=== PATIENT | male | born 1945 | race Caucasian/White ===

== ENCOUNTER → 2018-08-08 | Outpatient (CLI) | payer OTHER, MEDICARE | END | disposition home or self-care (01) | LOC: LAB SHORT 12:43 → LAB EV 12:43 | DX: L72.3 Sebaceous cyst (principal) | CPT/HCPCS: 87070; 87205 ==

== ENCOUNTER 2019-03-09 18:23 | Observation (INO) | payer OTHER, MEDICARE ==
[~2019-03-09] VITALS: Ht 170.2 cm; Wt 79.4 kg
[2019-03-09 18:55] LABS: BASOPHILS ABSOLUTE AUTO 0.04 K/mm3 (0.00-0.23); BASOPHILS PERCENT AUTO 0 % (0-2); EOSINOPHILS ABSOLUTE AUTO 0.15 K/mm3 (0.00-0.68); EOSINOPHILS PERCENT AUTO 2 % (0-6); Hemoglobin 14.1 g/dL (13.5-17.5); IMMATURE GRAN ABSOLUTE AUTO 0.07 K/mm3 (0.00-0.10); IMMATURE GRAN PERCENT AUTO 1 % (0-1); LYMPHOCYTES ABSOLUTE AUTO 1.82 K/mm3 (0.84-5.20); LYMPHOCYTES PERCENT AUTO 20 % (21-46); MONOCYTES ABSOLUTE AUTO 0.77 K/mm3 (0.16-1.47); MONOCYTES PERCENT AUTO 8 % (4-13); Mean Corpuscular HGB 31.4 pg (26.0-34.0); Mean Corpuscular HGB Conc 34.4 g/dL (31.5-36.5); Mean Corpuscular Volume 91 fL (80-100); Mean Platelet Volume 9.9 fL (9.1-12.4); NEUTROPHILS ABSOLUTE AUTO 6.43 K/mm3 (1.96-9.15); NEUTROPHILS PERCENT AUTO 69 % (41-73); Platelet Count 360 K/mm3 (150-400); RDW Coefficient Variation 13.4 % (11.7-14.2); RDW Standard Deviation 45.8 fL (35.1-46.3); Red Blood Cell Count 4.49 M/mm3 (4.30-5.90); White Blood Cell Count 9.28 K/mm3 (4.00-11.30)
[2019-03-09 19:16] LABS: Alanine Aminotransfer (ALT/SGP 60 U/L (12-78); Albumin, Blood 2.8 g/dL (3.4-5.0); Albumin/Globulin Ratio 0.7 (0.8-1.8); Alk Phos 144 U/L (50-136); Anion Gap 4 mmol/L (6-16); Aspartate Aminotrans (AST/SGOT 41 U/L (12-37); Bilirubin, Total 0.5 mg/dL (0.1-1.0); Blood Urea Nitrogen 20 mg/dL (8-24); Bun/Creatinine Ratio 25.7 (12.0-20.0); CO2, Blood 27 mmol/L (21-32); Calcium, Blood 8.8 mg/dL (8.5-10.1); Chloride, Blood 108 mmol/L (98-108); Creatinine, Blood 0.78 mg/dL (0.60-1.20); Globulin, Blood 4.3 g/dL (2.2-4.0); Glomerular Filtration Rate >60 (60-); Glucose, Blood 98 mg/dL (70-99); Potassium, Blood 3.5 mmol/L (3.5-5.5); Sodium, Blood 139 mmol/L (136-145); Total Protein, Blood 7.1 g/dL (6.4-8.2); Troponin I <0.015 ng/mL (0.000-0.040)
[2019-03-09] MEDS ORDERED: THERA1 EACH PO (20:32)
[2019-03-09] MEDS ORDERED: VITAMIN D3 PO (20:32)
[2019-03-09] MEDS ORDERED: FISH OIL PO (20:33)
[2019-03-09] MEDS ORDERED: VITAMIN C PO (20:33)
--- NOTE | 2019-03-09 22:00 | NUR ---
ADMIT PT ARRIVES TO PCU 16 FROM ER VIA [facility]. PT IS AOX4. AMBULATES INDEPENDENTLY FROM [facility] TO HOSPITAL BED WITHOUT DIFFICULTY. PT DENIES PAIN, DIZZINESS OR LIGHTHEADEDNESS UPON AMBULATION. PT HEART RHYHTM CURRENTLY IN AFLUTTER WITH RATE AVERAGING IN THE 130s PER TELEMETRY. PT DENIES CHEST PAIN. ALL OTHER VSS. LUNG SOUNDS CLEAR IN UPPER LOBES WITH COARSE RLL AND CLEAR LLL. Pt NOTED TO HAVE DRY, NON-PRODUCTIVE COUGHT THAT HAS BEEN PRESENT FOR APPROXIMATELY 5 DAYS. REPORTS THAT HE WENT TO URGENT CARE TO BE SEEN ABOUT COUGH, WAS FOUND TO BE IN A-FLUTTER WITH RAPID RATE AND SENT IN TO ER. CARDIZEM DRIP INFUSING AT 5 MG/HR CURRENTLY. PT EDUCATED ON CURRENT ILLNESS AND NEW MEDICATIONS TO BE UTILIZED FOR TREATMENT. Pt ORIENTED TO ROOM AND CALL LIGHT SYSTEM, ENCOURAGED TO CALL FOR ASSISTANCE WITH AMBULATION- VERBALIZES UNDERSTANDING. SPOUSE AT BEDSIDE VISITING. WILL CONTINUE WITH ADMISSION AND ASSESSMENT. BED IN LOW POSITION, CALL LIGHT IN REACH.
--- NOTE | 2019-03-09 23:38 | NUR ---
CARDIAC CONVERSION PT CONVERTED TO NORMAL SINUS WITH A RATE IN THE 80s PER TELEMETRY. CARDIZEM DRIP PLACED ON STANDBY AT THIS TIME. PT WITH SOME PERSPIRATION TO FACE, BUT OTHERWISE NO CHANGE IN CONDITION. DENIES CP, DIZZINESS/LIGHTHEADEDNESS, OR DYSPNEA. WILL CONTINUE WITH MONITORING.
[2019-03-09 23:52] LABS: Adenovirus Not Detected (NOT DETECT); Bordetella pertussis Not Detected (NOT DETECT); Chlamydophila pneumoniae Not Detected (NOT DETECT); Coronavirus 229E Not Detected (NOT DETECT); Coronavirus HKU1 Not Detected (NOT DETECT); Coronavirus NL63 Not Detected (NOT DETECT); Coronavirus OC43 Not Detected (NOT DETECT); Human Metapneumovirus Not Detected (NOT DETECT); Human Rhinovirus/Enterovirus Not Detected (NOT DETECT); Influenza A Not Detected (NOT DETECT); Influenza A/2009-H1 Not Detected (NOT DETECT); Influenza A/H1 Not Detected (NOT DETECT); Influenza A/H3 Not Detected (NOT DETECT); Influenza B Not Detected (NOT DETECT); Mycoplasma pneumoniae Not Detected (NOT DETECT); Parainfluenza Virus 1 Not Detected (NOT DETECT); Parainfluenza Virus 2 Not Detected (NOT DETECT); Parainfluenza Virus 3 Not Detected (NOT DETECT); Parainfluenza Virus 4 Not Detected (NOT DETECT); Respiratory Syncytial Virus Not Detected (NOT DETECT)
[2019-03-10 03:54] LABS: Hematocrit 39.1 % (37.0-53.0); Hemoglobin 12.9 g/dL (13.5-17.5); Mean Corpuscular HGB 30.6 pg (26.0-34.0); Mean Corpuscular Volume 93 fL (80-100); Mean Platelet Volume 10.3 fL (9.1-12.4); Platelet Count 343 K/mm3 (150-400); RDW Coefficient Variation 13.3 % (11.7-14.2); RDW Standard Deviation 45.3 fL (35.1-46.3); Red Blood Cell Count 4.22 M/mm3 (4.30-5.90); White Blood Cell Count 11.38 K/mm3 (4.00-11.30)
[2019-03-10 04:11] LABS: Alanine Aminotransfer (ALT/SGP 53 U/L (12-78); Albumin, Blood 2.5 g/dL (3.4-5.0); Albumin/Globulin Ratio 0.6 (0.8-1.8); Alk Phos 135 U/L (50-136); Anion Gap 7 mmol/L (6-16); Aspartate Aminotrans (AST/SGOT 36 U/L (12-37); Bilirubin, Total 0.4 mg/dL (0.1-1.0); Blood Urea Nitrogen 18 mg/dL (8-24); Bun/Creatinine Ratio 28.8 (12.0-20.0); CO2, Blood 23 mmol/L (21-32); Calcium, Blood 8.6 mg/dL (8.5-10.1); Chloride, Blood 110 mmol/L (98-108); Creatinine, Blood 0.63 mg/dL (0.60-1.20); Globulin, Blood 4.1 g/dL (2.2-4.0); Glomerular Filtration Rate >60 (60-); Glucose, Blood 130 mg/dL (70-99); Potassium, Blood 4.3 mmol/L (3.5-5.5); Sodium, Blood 140 mmol/L (136-145); Total Protein, Blood 6.6 g/dL (6.4-8.2)
--- NOTE | 2019-03-10 05:48 | NUR ---
SHIFT SUMMARY PT HAS REMAINED AOX4 THROUGHOUT SHIFT. VSS. PLEASANT AND COOPERATIVE WITH CARE. PT HAS REMAINED IN NORMAL SINUS SINCE CONVERSION LAST PM WITH A RATE IN THE 80s. PT CONTINUES TO HAVE DRY, NON-PRODUCTIVE COUGH THROUGHOUT THE NIGHT THAT DOES NOT APPEAR TO HAVE DECREASED WITH TESSALON PERLES. AMBULATES WITH STANDBY ASSIST TO RESTROOM WITHOUT DIFFICULTY. DENIES PAIN. DENIES DYSPNEA. PT HAS NOT RESTED MUCH THROUGHOUT THE NIGHT R/T COUGHING. NO OTHER CHANGES NOTED FROM INITIAL ASSESSMENT. WILL CONTINUE TO MONITOR AND REPORT TO ONCOMING SHIFT RN. BED IN LOW POSITION, CALL LIGHT IN REACH.
[2019-03-10] MEDS ORDERED: Fish Oil Conc1000 MG PO (15:46)
[2019-03-10] MEDS ORDERED: ASPI325 PO (15:51)
[2019-03-10] MEDS ORDERED: BENZ100A PO (15:53)
[2019-03-10] MEDS ORDERED: DEXT30SU PO (15:56)
[2019-03-10] MEDS ORDERED: Anti-Diarrheal2 MG PO (15:59)
[2019-03-10] MEDS ORDERED: METO25 PO (16:01)
--- NOTE | 2019-03-10 16:36 | NUR ---
REMOVED BOTH IV'S WITH NO S/SX OF INFECTION OR INFILTRATION, LINES WERE INTACT, PW COMPLETED AND MED AND INSTRUCTIONS REVIEWED WITH PT AND
== END 2019-03-10 16:32 | disposition home or self-care (01) ==
LOC: ER 18:23 → PCU 18:24 → ER 20:21 → PCU 20:21
PROVIDERS: Physician Assistant; ADMIT Internal Medicine
DX: I48.0 Paroxysmal atrial fibrillation (principal); J18.1 Lobar pneumonia, unspecified organism; R19.7 Diarrhea, unspecified; Z79.899 Other long term (current) drug therapy; Z79.82 Long term (current) use of aspirin
CPT/HCPCS: 0099U; 36415; 71045; 71046; 80053; 83880; 84145; 84484; 85025; 85027; 87070; 87205; 93005; 93010; 93306; 96365; 96366; 96367; 96372; 96376; 99285-25; G0378; J1650; J1956; J3480